=== PATIENT | male | born 1935 | race Caucasian/White ===

== ENCOUNTER 2016-09-17 09:59 | Emergency (ER) | payer MEDICARE, BC ==
[~2016-09-17] VITALS: Ht 182.9 cm; Wt 75.0 kg
[2016-09-17 10:11] VITALS: BP 160/86; PULSE 74; RESP 16; TEMP 98.1; O2SAT 93
[2016-09-17] MEDS ORDERED: ASPI1TAB69 PO (10:23)
[2016-09-17] MEDS ORDERED: ZOCO20TA PO (10:23)
[2016-09-17] MEDS ORDERED: AZOP1SUS EACH EYE (10:23)
[2016-09-17] MEDS ORDERED: VITA100064 PO (10:23)
[2016-09-17] MEDS ORDERED: ADVA100A INH (10:23)
[2016-09-17] MEDS ORDERED: MULT1TAB84 PO (10:24)
[2016-09-17] MEDS ORDERED: PRED10PA2 PO (11:04)
[2016-09-17] MEDS ORDERED: ULTR50TA5 PO (11:04)
--- NOTE | 2016-09-17 11:04 | PD ---
HPI . Right leg pain Chief Complaint: Pain: Acute or Chronic Time Seen by Provider: 10:21 Travel History International Travel<30 days: No Contact w/Intl Traveler<30days: No Traveled to known affect area: No History of Present Illness HPI Patient presents with right leg pain which started 5 weeks ago. It starts in the right buttock and radiates all the way down to the right foot. He is not having any incontinence. Not taking anything for it. He denies known injury. He states that he has [place] seen his doctor [place]. PFSH Past Medical History High Cholesterol: Yes Diabetes: Yes (TYPE 2) Patient Takes Glucophage: No Diminished Hearing: No Tetanus Vaccination: > 5 Years Influenza Vaccination: Yes Past Surgical History Abdominal Surgery: Yes (hernia repair) Cardiac Surgery: Yes (carotid sx) Social History Alcohol Use: Yes (ocassionally) Tobacco Use: No Substance Use: No Allergies-Medications (Allergen,Severity, Reaction): Coded Allergies: No Known Allergies (Unverified , 09/17/16) Reported Meds & Prescriptions Reported Meds & Active Scripts Active Ultram (Tramadol HCl) 50 Mg Tab 50 Mg PO Q4H PRN Prednisone (48) 10 mg tab Dose Pack (Prednisone) 10 Mg Dspk 10 Mg PO DIRECTED Reported Multivitamin Adults (Multiple Vitamins W/ Minerals) 1 Tab 1 Tab PO DAILY Vitamin D (Cholecalciferol) 1,000 Unit Tab 1,000 Units PO DAILY Azopt Opth Drops (Brinzolamide) 1% Susp 1 Drop EACH EYE BID Zocor (Simvastatin) 20 Mg Tab 20 Mg PO DAILY@1600 Aspirin 81 Mg Tabdr 81 Mg PO DAILY Advair Diskus Inh (Fluticasone-Salmeterol Inh) 100-50 Mcg/Blist Aer 1 Puff INH BID Rinse mouth after use. Review of Systems Except as stated in HPI: all other systems reviewed are Neg General / Constitutional: No: Fever, Chills Musculoskeletal: Positive: Myalgias Neurologic: No: Paresthesia, Incontinence Physical Exam Narrative GENERAL: This is a healthy-appearing older man who is not in any distress. SKIN: Warm and dry. HEAD: Atraumatic. Normocephalic. EYES: Pupils equal and round. MUSCULOSKELETAL: No obvious deformities. No edema. Log rolling of the hip does not cause pain. Straight leg raise of both legs does not cause pain. No tenderness to percussion of his L-spine. NEUROLOGICAL: Awake and alert. No obvious cranial nerve deficits. Motor grossly within normal limits. Normal speech. PSYCHIATRIC: Appropriate mood and affect; insight and judgment normal. Data Data Last Documented VS Vital Signs Date Time Temp Pulse Resp B/P Pulse Ox O2 Delivery O2 Flow Rate FiO2 09/17/16 10:25 17 09/17/16 10:11 98.1 74 160/86 93 Room Air Orders Hip, Uni(Ap&Lat) Wo Ap Pelvis (09/17/16 10:22) Ct Pelvis W/O Iv Contrast (09/17/16 ) Complete Blood Count With Diff (09/17/16 13:40) Comprehensive Metabolic Panel (09/17/16 13:40) Urinalysis - C+S If Indicated (09/17/16 13:40) Sodium Chloride 0.9% Flush (Ns Flush) (09/17/16 13:45) Radiology Film Requests (09/17/16 ) MDM Medical Decision Making Medical Screen Exam Complete: Yes Emergency Medical Condition: Yes Differential Diagnosis Differential diagnosis of leg pain includes but is not limited to lumbar radiculopathy, arthritis, myalgias, DVT. Narrative Course Patient presents with a 5 week history of right leg pain. It sounds like sciatica. He does not give me any symptoms worrisome for an epidural abscess, etc. Plain films were worrisome for possible stress fx. CT pelvis: CONCLUSION: 1. 5 cm mass in the right side of the sacrum with cortical destruction and adjacent soft tissue involvement indicating aggressive features. Calcified matrix, likely chondroid is seen within the mass. Differential diagnosis includes chordoma, chondrosarcoma, and bone metastasis. 2. No evidence of fracture. 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 These findings were discussed with the patient. He refers to return home for evaluation of this problem. We will get his films on a CD. He has been instructed to return home as soon as possible. Diagnosis Primary Impression: Right leg pain Additional Impression: Mass of right hip region Patient Instructions: General Instructions, Sciatica (ED) Scripts Oxycodone-Acetaminophen (Percocet)5-325 mg Tab1-2 Tab PO Q4H PRN (PAIN) #20 TAB Ref 0 Prov:Etta Weaver MD 09/17/16 Disposition: 01 DISCHARGE HOME Condition: Stable Etta Weaver MD Sep 17, 2016 11:04
--- NOTE | 2016-09-17 11:21 | RADRPT ---
EXAM DATE/TIME: 09/17/2016 11:11 [facility] COMPARISON: No previous studies available for comparison. INDICATIONS : Left hip pain for approximately 5 weeks. MEDICAL HISTORY : None. SURGICAL HISTORY : None. ENCOUNTER: Initial ACUITY: 1 month PAIN SCORE: 5/10 LOCATION: Left hip. FINDINGS: 2 views left hip. There is evidence of mild bony remodeling at the superior aspect of the proximal femoral neck indicat ing a possible stress fracture. Bone alignment within normal limits. No evidence of joint narrowing. CONCLUSION: Possible femoral neck stress fracture. Finding could be further evaluated with MRI hip without contra st. Otherwise within normal limits. Quique Ewing MD on September 17, 2016 at 11:17 Board Certified Radiologist. This report was verified electronically.
--- NOTE | 2016-09-17 13:31 | RADRPT ---
EXAM DATE/TIME: 09/17/2016 12:27 [facility] COMPARISON: HIP RIGHT (AP&LAT 2/3VWS) WO AP PELVIS, September 17, 2016, 11:11. INDICATIONS : Right hip/pelvic pain for 5 weeks, radiating down leg. Abnormal xray. ORAL CONTRAST: No oral contrast ingested. RADIATION DOSE: 25.60 CTDIvol (mGy) MEDICAL HISTORY : Diabetes mellitus type 2. SURGICAL HISTORY : None. ENCOUNTER: Initial ACUITY: 1 month PAIN SCALE: 4/10 LOCATION: Right pelvis TECHNIQUE: Volumetric scanning of the pelvis was performed. Using automated exposure control and adjustment of the mA and/or kV according to patient size, radiation dose was kept as low as reasonably achievable t o obtain optimal diagnostic quality images. FINDINGS: There is a 4.5 x 5.5 x 4.5 cm mass in the left sacral body/ala at the level of S1. Ill-defined cortic al erosion/destruction is seen anteriorly and posteriorly. Faint calcified matrix is seen favoring ch ondroid matrix. Central canal diameter is within normal limits. The mass involves the right S1 forame n and abuts the exiting right S1 nerve root/nerve. The mass extends slightly into the central canal b ut no evidence of central canal stenosis. Small osteophytes of the hips. Mild bony remodeling at the lateral head neck junctions bilaterally. T his is a symmetric appearance. No fracture identified. Multiple cysts are seen in the proximal femurs at the head neck junctions. Minimal axial hip joint narrowing bilaterally. CONCLUSION: 1. 5 cm mass in the right side of the sacrum with cortical destruction and adjacent soft tissue invol vement indicating aggressive features. Calcified matrix, likely chondroid is seen within the mass. Di fferential diagnosis includes chordoma, chondrosarcoma, and bone metastasis. 2. No evidence of fracture. 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 Quique Ewing MD on September 17, 2016 at 13:16 Board Certified Radiologist. This report was verified electronically.
[2016-09-17] MEDS ORDERED: SODIUM CHLORIDE 0.9% FLUSH 5 ML FLUSH IVF PRN (13:45)
[2016-09-17] MEDS ORDERED: PERC5TAB12 PO (13:49)
[2016-09-17 14:20] VITALS: BP 130/71; TEMP 98
--- NOTE | 2016-09-17 14:41 | RADRPT ---
EXAM DATE/TIME: 09/17/2016 14:15 [facility] COMPARISON: No previous studies available for comparison. INDICATIONS : Shortness of breath. MEDICAL HISTORY : Diabetes mellitus type II. SURGICAL HISTORY : None. ENCOUNTER: Initial ACUITY: 1 day PAIN SCORE: 0/10 LOCATION: Bilateral chest FINDINGS: A single view of the chest demonstrates the lungs to be symmetrically aerated without evidence of mas s, infiltrate or effusion. The cardiomediastinal contours are unremarkable. Osseous structures are intact. CONCLUSION: No acute disease. Dawson Shoemaker MD on September 17, 2016 at 14:39 Board Certified Radiologist. This report was verified electronically.
== END 2016-09-17 14:20 | disposition home or self-care (01) ==
LOC: NEPB 09:59
DX: M79.604 Pain in right leg (principal); M25.9 Joint disorder, unspecified; E78.00 Pure hypercholesterolemia, unspecified; E11.9 Type 2 diabetes mellitus without complications
CPT/HCPCS: 71010; 72192; 73502